=== PATIENT | male | born 1970 | race Hispanic/Latino ===

== ENCOUNTER 2018-03-22 18:23 | Emergency (ER) | payer BC ==
[~2018-03-22] VITALS: Ht 154.9 cm; Wt 70.0 kg
[2018-03-22] MEDS ORDERED: GENTAMICIN SULF5 ML OS (20:05)
[2018-03-22 20:56] VITALS: BP 133/89
[2018-03-22] MEDS ORDERED: no home meds (20:57)
== END 2018-03-22 20:56 | disposition home or self-care (01) | DRG 125 ==
LOC: ED 18:23
DX: S05.02XA Injury of conjunctiva and corneal abrasion without foreign body, left eye, initial encounter (principal); X58.XXXA Exposure to other specified factors, initial encounter

== ENCOUNTER 2022-07-24 08:22 | Emergency (ER) | payer OTHER ==
[~2022-07-24] VITALS: Ht 165.1 cm; Wt 66.0 kg
[~2022-07-24 08:22] MED LIST: GENTAMICIN SULF5 ML OS; no home meds
[2022-07-24 09:19] VITALS: BP 143/93
[2022-07-24] MEDS ORDERED: TAM75CAP PO (09:19)
[2022-07-24] MEDS ORDERED: CHERATUSSIN PO (09:19)
== END 2022-07-24 09:23 | disposition home or self-care (01) | DRG 153 ==
LOC: ED 08:22
DX: J11.1 Influenza due to unidentified influenza virus with other respiratory manifestations (principal); Z20.822 Contact with and (suspected) exposure to COVID-19

== ENCOUNTER 2023-11-12 09:38 | Inpatient (IN) | payer SELFPAY ==
[2023-11-12] VITALS (15 sets, daily range): BP systolic 123–154; BP diastolic 71–91
[~2023-11-12] VITALS: Ht 165.1 cm; Wt 69.2 kg
[~2023-11-12 09:38] MED LIST changes: +CHERATUSSIN PO; +MOTRIN400 MG/TAB PO; +ORPHENADRINE C100 M1 PO; +TAM75CAP PO
--- NOTE | 2023-11-12 09:48 | NUR ---
PATIENT TO ROOM 10
[2023-11-12] MEDS ORDERED: SODIUM CHLORIDE 0.9% 1,000 ML BAG IV ONE (10:05)
[2023-11-12 10:32] LABS: BASO% 0.1 % (0-3); HEMOGLOBIN 13.7 g/dl (14.0-18.0); IMMATURE GRANULOCYTES 0.1 % (0.0-5.0); LYMPH% 4.1 % (15-41); MEAN CELL VOLUME 93.2 fL CALC (80.0-100.0); MEAN CORPUSCULAR HGB 31.1 pG CALC (26.0-32.0); MEAN CORPUSCULAR HGB CONC 33.4 g/dL CAL (32.0-36.0); MONO% 5.6 % (2-13); NEUT# 13.65 thou/uL (1.82-7.42); NEUT% 90.1 % (42-76); RED BLOOD COUNT 4.4 mill/uL (4.70-6.10); RED CELL DISTRI WIDTH 12.4 % (11.5-15.5)
[2023-11-12 10:51] LABS: ALBUMIN 4.2 g/dL (3.2-5.0); ALKALINE PHOSPHATASE 85 u/l (38-126); ANION GAP 8 (6-22 (CALC)); BILIRUBIN, TOTAL 0.5 mg/dL (0.2-1.3); BUN 11 mg/dL (9-20); BUN/CREATININE RATIO 12 (12-20 (CALC)); CARBON DIOXIDE 25 mmol/l (22-30); CHLORIDE 104 mmol/l (95-108); CREATININE 0.9 mg/dL (0.7-1.3); ESTIMATED GFR 101 ML/MIN (>=90 (CALC)); POTASSIUM 3.7 mmol/l (3.5-5.1); SGOT/AST 44 u/l (17-59); SODIUM 134 mmol/l (137-146); TOTAL PROTEIN 7.8 g/dL (6.3-8.2)
--- NOTE | 2023-11-12 11:21 | NUR ---
Reassessment of patient completed. No distress noted.
[2023-11-12] MEDS ORDERED: SODIUM CHLORIDE 0.9% 1,000 ML IV ONE (11:50)
[2023-11-12] MEDS ORDERED: ACETAMINOPHEN 325 MG/TAB PO PRN (12:25)
[2023-11-12] MEDS ORDERED: SODIUM CHLORIDE 0.9% 1,000 ML IV PRN (12:25)
[2023-11-12] MEDS ORDERED: MAGNESIUM HYDROXIDE 30 ML UDC PO PRN (12:25)
--- NOTE | 2023-11-12 12:37 | NUR ---
PATIENT STATES UNDERSTANDING OF ADMISSION AND AGREES TO STAY.
--- NOTE | 2023-11-12 12:57 | NUR ---
ROOM 262 GIVEN AT THSI TIME
[2023-11-12] MEDS ORDERED: OSELTAMIVIR PHOSPHATE 75 MG/TAB CAP PO SCH (13:00)
--- NOTE | 2023-11-12 13:24 | NUR ---
FIRST ATTEMPT TO CALL REPORT, NURSE TO RETURMN CALL.
--- NOTE | 2023-11-12 13:32 | NUR ---
NURSE TO NURSE REPPORT COMPLETED FOR ROOM 262 TELE #7
[2023-11-12] MEDS ORDERED: AZITHROMYCIN 500 MG in SODIUM CHLORIDE 0.9% 250 ML IV SCH (14:00)
--- NOTE | 2023-11-12 14:55 | NUR ---
REPORT RECEIVED FROM JEWEL IN ED, PT ARRIVED ON UNIT @ 1342, SETTLED IN BED, C/O CHEST PAIN WHEN COUGHING, TELE MONITOR IN PLACE, ORIENTED TO ROOM AND CALL ONEILL, SPOUSE IN ROOM AT THIS TIME.
[2023-11-12] MEDS ORDERED: IPRATROPIUM-Albuterol 0.5MG-2.5MG/3 ML NEB SCH (15:00)
--- NOTE | 2023-11-12 17:18 | NUR ---
re checkedc patients vitals and his temp was 102.5 temporal. his heart rate was 123. patient stated he was not feeling great. stated he has been throwing up and nauseous. I alerted pramod right away.
[2023-11-12] MEDS ORDERED: ONDANSETRON HCl 4 MG/2 ML SDV IV PRN (17:20)
[2023-11-12] MEDS ORDERED: VANCOMYCIN HCL 1 GM in SODIUM CHLORIDE 0.9% 250 ML IV ONE (17:20)
[2023-11-12] MEDS ORDERED: KETOROLAC TROMETHAMINE 15 MG/ML SDV IV PRN (17:20)
[2023-11-12] MEDS ORDERED: SODIUM CHLORIDE 0.9% 1,000 ML IV SCH (17:20)
[2023-11-12] MEDS ORDERED: KETOROLAC TROMETHAMINE 30 MG/ML SDV IV ONE (17:20)
--- NOTE | 2023-11-12 17:44 | NUR ---
C/O HEADACHE, NAUSEA, TEMP AND HEART RATE ELEVATED RECORDED, MD NOTIFIED AND WROTE ORDERS.
--- NOTE | 2023-11-12 17:46 | NUR ---
CARDINAL CONTACTED TO VERIFY ORDERS FOR ADMINISTRATION.
[2023-11-12] MEDS ORDERED: METOPROLOL TARTRATE 25 MG/TAB PO SCH (17:51)
--- NOTE | 2023-11-12 18:45 | NUR ---
PT C/O ROOM TOO HOT, CHANGED TO ROOM 265 AT THIS TIME.
--- NOTE | 2023-11-12 19:35 | NUR ---
HAVING DIARRHEA NILA ATHIS TIME.
--- NOTE | 2023-11-12 20:00 | NUR ---
PT AMBULATING IN ROOM INDEPENDENTLY NO DISTRESS NOTED ON EXAM. LINENS CHANGED. IV SITE FLUSHED WORKING PROPERLY FLUIDS ONGOING. NO PAIN REPORTED AT THIS TIME. PT STATED FEELING BETTER. VS WNL ON RA. BS HYPERACTIVE BM TODAY DIARRHEA. SKIN INTACT NO EDEMA. CALL LIGHT WITHIN REACH. PLAN OF CARE ONGOING.
[2023-11-12] MEDS ORDERED: ENOXAPARIN SODIUM 40 MG/0.4 ML SYR SC SCH (21:00)
[2023-11-12] MEDS ORDERED: GUAIFENESIN 600 MG/TAB PO SCH (21:00)
[2023-11-13] VITALS (8 sets, daily range): BP systolic 121–149; BP diastolic 75–90
--- NOTE | 2023-11-13 00:12 | NUR ---
PT RESTING NO DISTRESS NOTED ON EXAM. NO PAIN REPORTED AT THIS TIME. VS WNL ON RA. IV CHECKED WORKING PROPERLY NS INFUSION ONGOING. CALL LIGHT WITHIN REACH. PLAN OF CARE ONGOING.
--- NOTE | 2023-11-13 04:30 | NUR ---
PT RESTING NO DISTRESS NOTED ON EXAM SPOUSE AT BEDSIDE. NO PAIN REPORTED AT THIS TIME. IV INFUSION ONGOING WORKING PROPERLY. CALL LIGHT WITHIN REACH. PLAN OF CARE ONGOING.
[2023-11-13 05:11] LABS: BASO% 0.2 % (0-3); EOS% 0.1 % (0-8); IMMATURE GRANULOCYTES 0.2 % (0.0-5.0); LYMPH% 10.1 % (15-41); MEAN CELL VOLUME 95.2 fL CALC (80.0-100.0); MEAN CORPUSCULAR HGB 31.5 pG CALC (26.0-32.0); MEAN CORPUSCULAR HGB CONC 33.1 g/dL CAL (32.0-36.0); MONO% 8.8 % (2-13); NEUT# 8.34 thou/uL (1.82-7.42); NEUT% 80.6 % (42-76); RED BLOOD COUNT 3.55 mill/uL (4.70-6.10); RED CELL DISTRI WIDTH 12.9 % (11.5-15.5)
[2023-11-13 05:29] LABS: HEMATOCRIT 33.8 % (39.0-50.0); HEMOGLOBIN 11.2 g/dl (14.0-18.0)
[2023-11-13 05:50] LABS: BILIRUBIN, TOTAL 0.4 mg/dL (0.2-1.3); CHOLESTEROL HDL RATIO 5.2 (<4.4 (CALC)); CREATININE 0.7 mg/dL (0.7-1.3); POTASSIUM 3.7 mmol/l (3.5-5.1)
[2023-11-13 05:53] LABS: ALBUMIN 3.1 g/dL (3.2-5.0); TOTAL PROTEIN 5.5 g/dL (6.3-8.2)
[2023-11-13] MEDS ORDERED: PANTOPRAZOLE SODIUM Sesquihydr 40 MG/TAB PO SCH (09:00)
[2023-11-13] MEDS ORDERED: cefTRIAXone SODIUM 2 GM in SODIUM CHLORIDE 0.9% 100 ML IV SCH (09:00)
[2023-11-13] MEDS ORDERED: methylPREDNISolone Sod Succ 40 MG/ML SDV IV SCH (09:00)
[2023-11-13] MEDS ORDERED: TIOTROPIUM BROMIDE MONOHYDRATE 2.5 MCG/ACT 4 GM INH IN SCH (09:00)
[2023-11-13] MEDS ORDERED: VANCOMYCIN HCL 1,250 MG in SODIUM CHLORIDE 0.9% 225 ML IV SCH (10:30)
--- NOTE | 2023-11-13 10:54 | NUR ---
S: LEXUS GAN is a 53 M who presents with sepsis, pneumonia, and influenza. He denies past medical history. All medications in patient's chart were reviewed. O: VS: BP 121/78 mmHg, P 84 bpm, RR 20 breaths/min,T 98.6 f W 69.2 kg, HT 65 in, Scr= 0.7,CrCl= 108.9 ml/min A: Blood culture is pending. P: Patient is on ceftriaxone 2 g Q24H and azithromycin 500 mg IV Q24H. Vancomycin ordered for pharmacy to dose. Start Vancomycin 1250 IV Q12H @1030 & 2230. Vancomycin trough is drawn before the 4th dose on 11/13 @ 2200. Vancomycin goal trough is between 15-20 mcg/ml. Pharmacy will follow and or advise on antibiotics use as needed.
--- NOTE | 2023-11-13 12:03 | NUR ---
PT RESTING COMFORTABLY IN THE BED AT THIS TIME.
--- NOTE | 2023-11-13 15:32 | NUR ---
TYLENOL GIVEN FOR HEADACHE PAIN. NO FEVERS ON THIS SHIFT.
--- NOTE | 2023-11-13 16:20 | NUR ---
PT STATES THE TYLENOL WAS "GOOD" FOR HIS HEADACHE PAIN.
--- NOTE | 2023-11-13 20:05 | NUR ---
REPORT RECIEVED FROM [facility] NURSE. ADELINA GRAY. PT RESTING IN BED WATCHING TELEVISION AND TALKING ON THE PHONE. PT IS A&O X3 AND ABLE TO MAKE NEEDS KNOWN. PT COMPLAINING OF GENERALIZED PAIN AT THIS TIME, WILL FOLLOW UP PER EMAR. NO FURTHER COMPLAINTS VOICED FROM PT. NON-PRODUCTIVE COUGH NOTED. TELE MONITOR IN PLACE. PT IS ON ROOM AIR. VSS. ANNA HOSE APPLIED TO BLE. PERIPHERAL PULSES ARE STRONG. INFUSION GOING PER MD ORDERS, IV SITE CLEAN AND INTACT, FLUSHING WELL. PT STATES THAT HIS LAST BM WAS 11-13-2023, BOWEL SOUNDS ACTIVE X4 QUADRANTS. LOWER LOBES DIMINISHED UPON AUSCULTATION OF LUNG SOUNDS. PT EDUCATED DEEP BREATHING AND COUGHING EXERCISES. NO S&S OF DISTRESS NOTED. PT EDUCATED ON POC AND MEDICATION SCHEDULE. CALL LIGHT IN REACH, AND SAFETY PRECAUTIONS IN PLACE.
[2023-11-14] VITALS (7 sets, daily range): BP systolic 128–148; BP diastolic 76–85
--- NOTE | 2023-11-14 00:25 | NUR ---
PT RESTING IN BED WATCHING TELEVISION. PT DOES NOT VOICE ANY CONCERNS AT THIS TIME. INFUSION GOING PER ORDERS. TELE MONITOR REMAINS IN PLACE. NO S&S OF DISTRESS NOTED. CALL LIGHT IN REACH, AND SAFETY PRECAUTIONS IN PLACE.
--- NOTE | 2023-11-14 04:25 | NUR ---
PT RESTING IN BED WITH EYES CLOSED. RESPIRATIONS ARE EVEN AND UNLABORED. PT IS EASILY AROUSABLE. INFUSION GOING PER MD ORDERS. NO S&S OF DISTRESS NOTED. TELE MONITOR IN PLACE. PT REMAINS ON ROOM AIR. CALL LIGHT IN REACH, AND SAFETY PRECAUTIONS IN PLACE.
[2023-11-14 06:43] LABS: BASO% 0.1 % (0-3); HEMATOCRIT 34.6 % (39.0-50.0); HEMOGLOBIN 11.6 g/dl (14.0-18.0); IMMATURE GRANULOCYTES 0.3 % (0.0-5.0); LYMPH% 6.3 % (15-41); MEAN CELL VOLUME 94.5 fL CALC (80.0-100.0); MEAN CORPUSCULAR HGB 31.7 pG CALC (26.0-32.0); MEAN CORPUSCULAR HGB CONC 33.5 g/dL CAL (32.0-36.0); MONO% 3.1 % (2-13); NEUT# 6.92 thou/uL (1.82-7.42); NEUT% 90.2 % (42-76); RED BLOOD COUNT 3.66 mill/uL (4.70-6.10)
[2023-11-14 06:54] LABS: ALBUMIN 3.3 g/dL (3.2-5.0); CREATININE 0.6 mg/dL (0.7-1.3); MAGNESIUM 2.3 mg/dL (1.6-2.3); POTASSIUM 3.9 mmol/l (3.5-5.1)
[2023-11-14 07:05] LABS: BILIRUBIN, TOTAL 0.2 mg/dL (0.2-1.3)
--- NOTE | 2023-11-14 07:36 | NUR ---
patient a/o x3; sitting semi ospina in bed; denied any pain; denied any n/d/v at this time; iv site on rac clean and intact running with NS @100; patient does have a cought that sounds wet but no sputum noticed at this time; room air breathing unlabored and even; patient aware that UA is needd; leora light within reach,verbalized understanding on how to use, personal items iwthin reach, bed in lowst postion;no complaints
[2023-11-14 09:34] LABS: URINE BILIRUBIN - DIPSTICK Negative (NEGATIVE); URINE BLOOD DIPSTICK Small (NEGATIVE); URINE GLUCOSE - DIPSTICK Negative (NEGATIVE); URINE KETONE 40 mg/dL (NEGATIVE); URINE LEUK ESTERASE Negative (NEGATIVE); URINE NITRITE - DIPSTICK Negative (Negative); URINE PROTEIN - DIPSTICK 30 mg/dL (NEG-TRACE); URINE SPECIFIC GRAVITY >=1.030; URINE UROBILINOGEN - DIPSTICK 0.2 E.U./dL (0.2)
[2023-11-14 09:38] LABS: URINE COLOR Yellow
[2023-11-14 09:48] LABS: URINE MUCUS MANY hpf (NONE-FEW); URINE RBC 0-2 RBC/hpf (0-5)
--- NOTE | 2023-11-14 12:42 | NUR ---
patient a/o x3; room air; breathing unlabored and even; dneied any pain; denied needing anthing; denied any n/d/v at this time; patent semi ospina in bed; iv in RAC not working applied new iv 22G in right hand that is working with no issues; no complaints at this time; call light within reach,verbalizd understanding on how to use, personal itemswitihn reach, bed in lowest postion; no complaints
--- NOTE | 2023-11-14 16:00 | NUR ---
patient a/o x3; in stable condition; room air; breathing unlabored; denied any pain; denied any n/d/v at this time iv site on right hand working with noissues; no s/s of distress; call light within reach,verablized understanding on how to use, personal items within reach, bed in lowest postion
--- NOTE | 2023-11-14 20:05 | NUR ---
REPORT RECIEVED FROM [facility] NURSE. AYSHA CHAVARRIA. PT RESTING IN BED WATCHING TELEVISION. PT IS A&O X3, AND ABLE TO MAKE NEEDS KNOWN. TELE MONITOR REMAINS IN PLACE. PT IS ON ROOM AIR. INFUSION GOING PER MD ORDERS. PT DENIES ANY CHILLS. VSS. NO N/V/D NOTED. PT STATES THAT HIS LAST BM WAS TODAY, 11-14-2023. PT REFUSING ANNA HOSE AT THIS TIME. PT REMAINS ON DROPLET PRECAUTIONS. INCENTIVE SPIROMETER PLACED AT BEDSIDE, PT INSTRUCTED ON ITS USE. LOWER LOBES DIMINISHED UPON AUSCULTATION. BOWEL SOUNDS ACTIVE X4 QUADRANTS. PERIPHERAL PULSES STRONG. NO S&S OF DISTRESS NOTED. PT EDUCATED ON POC AND MEDICATION SCHEDULE. NO COMPLAINTS OFFERED AT THIS TIME. CALL LIGHT IN REACH, AND SAFETY PRECAUTIONS IN PLACE. PT STATES THAT HE HAS GENERALIZED PAIN, WILL FOLLOW UP PER EMAR.
--- NOTE | 2023-11-15 00:05 | NUR ---
PT RESTING IN BED WITH EYES CLOSED. RESPIRATIONS ARE EVEN AND UNLABORED. PT IS EASILY AROUSABLE. INFUSION GOING PER ORDERS. NO S&S OF DISTRESS NOTED. TELE MONITOR REMAINS IN PLACE. PT REMAINS ON ROOM AIR. NO COMPLAINTS OFFERED AT THIS TIME. CALL LIGHT IN REACH, AND SAFETY PRECAUTIONS IN PLACE.
[2023-11-15 00:29] VITALS: BP 135/83
[2023-11-15 03:25] VITALS: BP 129/83
--- NOTE | 2023-11-15 04:15 | NUR ---
PT RESTING IN BED WATCHING TELEVISION. INFUSION GOING PER ORDERS. NO S&S OF DISTRESS. TELE REMAINS IN PLACE. REINFORCED EDUCATION ON USE OF INCENTIVE SPIROMETER. NO COMPLAINTS OFFERED AT THIS TIME. CALL LIGHT IN REACH, AND SAFETY PRECAUTIONS IN PLACE.
[2023-11-15 05:02] VITALS: BP 129/83
[2023-11-15 05:46] LABS: BASO% 0.1 % (0-3); HEMATOCRIT 33.1 % (39.0-50.0); IMMATURE GRANULOCYTES 0.5 % (0.0-5.0); LYMPH% 5.4 % (15-41); MEAN CELL VOLUME 95.1 fL CALC (80.0-100.0); MEAN CORPUSCULAR HGB 31.6 pG CALC (26.0-32.0); MEAN CORPUSCULAR HGB CONC 33.2 g/dL CAL (32.0-36.0); MONO% 2.8 % (2-13); NEUT# 10.21 thou/uL (1.82-7.42); NEUT% 91.2 % (42-76); RED BLOOD COUNT 3.48 mill/uL (4.70-6.10); RED CELL DISTRI WIDTH 13.4 % (11.5-15.5)
[2023-11-15 06:03] LABS: ALBUMIN 3.2 g/dL (3.2-5.0); CREATININE 0.6 mg/dL (0.7-1.3); MAGNESIUM 2.3 mg/dL (1.6-2.3); POTASSIUM 4.1 mmol/l (3.5-5.1); TOTAL PROTEIN 5.8 g/dL (6.3-8.2)
[2023-11-15 06:14] LABS: BILIRUBIN, TOTAL 0.3 mg/dL (0.2-1.3)
[2023-11-15 07:18] VITALS: BP 149/79
[2023-11-15 07:44] VITALS: BP 149/79
--- NOTE | 2023-11-15 08:00 | NUR ---
PT RESTING IN BED UPON ENTERING ROOM PT A&OX3. DIMISHED LUNG SOUNDS NOTED. LEFT LOWER LOBE CRACKLES NOTED. IV INACT/ FLUSHED INFUSING IVF PER EMAR. TELE MONITOR IN PLACE CONITNOUS MONITORING PER ED. ASSESSMENT COMPLETED. FAL/SAFTEY PRECAUITON IN PLACE. CALL LIGHT WIHTIN REACH
[2023-11-15] MEDS ORDERED: TAM75CAP PO (09:07)
[2023-11-15 09:10] VITALS: BP 149/79
[2023-11-15] MEDS ORDERED: VANCOMYCIN HCL 1,250 MG in SODIUM CHLORIDE 0.9% 225 ML IV SCH (10:00)
--- NOTE | 2023-11-15 10:45 | NUR ---
Discharge instructions given. Patient verbalizes understanding of same. Discharged in stable condition via Wheelchair to Home with staff. All belongings sent with pt. TELE REMOVED PUT AT NURSES STATION
== END 2023-11-15 10:43 | disposition home or self-care (01) | DRG 872 ==
LOC: ED 09:38 → ED-I 12:00 → ED 12:51 → MS2 12:52
PROVIDERS: Family Medicine; Nurse Practitioner Family; ADMIT Student in an Organized Health Care Education/Training Program; ATTEND Internal Medicine
DX: A41.9 Sepsis, unspecified organism (principal); J10.1 Influenza due to other identified influenza virus with other respiratory manifestations; Z20.822 Contact with and (suspected) exposure to COVID-19
CPT/HCPCS: J1650; J3370